=== PATIENT | female | born 1985 | race Caucasian/White ===

== ENCOUNTER 2018-11-04 20:57 | Emergency (ER) | payer BC ==
[2018-11-04 21:20] VITALS: BP 107/66
--- NOTE | 2018-11-04 21:46 | EDM.PDOC ---
ED HPI GENERAL MEDICAL PROBLEM - General Chief Complaint: Lower Extremity Injury/Pain Stated Complaint: RT ANKLE INJURY Time Seen by Provider: 11/04/18 21:40 Source of Information: Reports: Patient History Limitations: Reports: No Limitations - History of Present Illness INITIAL COMMENTS - FREE TEXT/NARRATIVE: This 33 yo female patient reports to the ED with right lateral ankle pain. The patient reports she was playing softball when she stepped in a hole as she was going into [facility] [place]. The patient reports a previous right ankle injury with a krysten and pins in the distal tibia. Onset: Today Duration: Minutes:, Constant Location: Reports: Lower Extremity, Right Quality: Reports: Ache Severity: Moderate Improves with: Reports: None Worsens with: Reports: None Context: Reports: Other Associated Symptoms: Reports: No Other Symptoms Right Foot Pain Score (Numeric/FACES): 5 - Related Data Allergies Allergy/AdvReac Type Severity Reaction Status Date / Time No Known Allergies Allergy Verified 11/04/18 21:26 Home Meds: Home Meds . [No Known Home Meds] 11/04/18 [History] Past Medical History - Past Health History Medical/Surgical History: Denies Medical/Surgical History Social & Family History - Tobacco Use Smoking Status *Q: Current Every Day Smoker Years of Tobacco use: 5 Packs/Tins Daily: 1 - Caffeine Use Caffeine Use: Reports: Soda - Recreational Drug Use Recreational Drug Use: No Review of Systems - Review of Systems Review Of Systems: ROS reveals no pertinent complaints other than HPI. ED EXAM, GENERAL - Physical Exam Exam: See Below Exam Limited By: No Limitations General Appearance: Alert, WD/WN, Mild Distress Eye Exam: Bilateral Eye: EOMI, Normal Inspection, PERRL Ears: Normal External Exam, Normal Canal, Hearing Grossly Normal, Normal TMs Nose: Normal Inspection, Normal Mucosa, No Blood Throat/Mouth: Normal Inspection, Normal Lips, Normal Teeth, Normal Gums, Normal Oropharynx, Normal Voice, No Airway Compromise Head: Atraumatic, Normocephalic Neck: Normal Inspection, Supple, Non-Tender, Full Range of Motion Respiratory/Chest: No Respiratory Distress, Lungs Clear, Normal Breath Sounds, No Accessory Muscle Use, Chest Non-Tender Cardiovascular: Normal Peripheral Pulses, Regular Rate, Rhythm, No Edema, No Gallop, No JVD, No Murmur, No Rub GI/Abdominal: Normal Bowel Sounds, Soft, Non-Tender, No Organomegaly, No Distention, No Abnormal Bruit, No Mass (Female) Exam: Deferred Rectal (Female) Exam: Deferred Back Exam: Normal Inspection, Full Range of Motion, NT Extremities: Leg Pain (right lateral ankle) Neurological: Alert, Oriented, CN II-XII Intact, Normal Cognition, Normal Gait, Normal Reflexes, No Motor/Sensory Deficits Psychiatric: Normal Affect, Normal Mood Skin Exam: Warm, Dry, Intact, Normal Color, No Rash Lymphatic: No Adenopathy Course - Vital Signs Last Recorded V/S: Last Vital Signs Temp 36.3 C 11/04/18 21:10 Pulse 103 H 11/04/18 21:10 Resp 19 11/04/18 21:10 BP 107/66 11/04/18 21:10 Pulse Ox 99 11/04/18 21:10 - Orders/Labs/Meds Orders: Active Orders 24 hr Category Date Time Status Ankle Min 3V Rt [CR] Urgent Exams 11/04/18 21:08 Ordered Departure - Departure Time of Disposition: 21:57 Disposition: Home, Self-Care 01 Condition: Fair Clinical Impression: Right ankle strain Qualifiers: Encounter type: initial encounter Qualified Code(s): S96.911A - Strain of unspecified muscle and tendon at ankle and foot level, right foot, initial encounter - Discharge Information *PRESCRIPTION DRUG MONITORING PROGRAM REVIEWED*: Not Applicable *COPY OF PRESCRIPTION DRUG MONITORING REPORT IN PATIENT EVAN: Not Applicable Instructions: Ankle Sprain, [id number] Forms: ED Department Discharge Care Plan Goals: The patient was advised of the examination and x-ray results during the visit. The patient was placed in an air splint while in the ED. The patient was encouraged to rest, ice and elevate the ankle over the next 48 hours. If the patient has any additional symptoms or concerns, the patient should either return to the emergency department or visit her primary care facility. - My Orders Last 24 Hours: My Active Orders 11/04/18 21:08 Ankle Min 3V Rt [CR] Urgent - Assessment/Plan Last 24 Hours: My Active Orders 11/04/18 21:08 Ankle Min 3V Rt [CR] Urgent
== END 2018-11-04 22:04 | disposition home or self-care (01) ==
LOC: DL.ED 20:57
DX: S96.911A Strain of unspecified muscle and tendon at ankle and foot level, right foot, initial encounter (principal); F17.210 Nicotine dependence, cigarettes, uncomplicated; W22.8XXA Striking against or struck by other objects, initial encounter; Y93.64 Activity, baseball
CPT/HCPCS: 73610-RT; 99283-25

== ENCOUNTER 2019-04-26 11:08 | Emergency (ER) | payer BC ==
[2019-04-26 11:18] VITALS: BP 118/78; PULSE 90
--- NOTE | 2019-04-26 11:36 | EDM.PDOC ---
Scribed by Carmen Del Rio 04/26/19 1133 for Jacob Chadwick PA ED HPI GENERAL MEDICAL PROBLEM - General Chief Complaint: Eye Problems Stated Complaint: EYE PROBLEMS Time Seen by Provider: 04/26/19 11:25 Source of Information: Reports: Patient, RN, RN Notes Reviewed History Limitations: Reports: No Limitations - History of Present Illness INITIAL COMMENTS - FREE TEXT/NARRATIVE: Patient is a 33-year-old female who presents to ER with left eye pain and drainage that started yesterday. She woke up this morning with redness, drainage and itching. Onset Date: 04/25/19 Duration: Constant Location: Reports: Other (left eye) Quality: Reports: Ache Severity: Mild Improves with: Reports: None Worsens with: Reports: None Associated Symptoms: Reports: No Other Symptoms - Related Data Allergies Allergy/AdvReac Type Severity Reaction Status Date / Time No Known Allergies Allergy Verified 04/26/19 11:15 Home Meds: Home Meds . [No Known Home Meds] 11/04/18 [History] Past Medical History - Past Health History Medical/Surgical History: Denies Medical/Surgical History HEENT History: Reports: Impaired Vision Cardiovascular History: Reports: None Respiratory History: Reports: None Gastrointestinal History: Reports: None YARDAGE ESTIMATOR History: Reports: None Musculoskeletal History: Reports: Other (See Below) Other Musculoskeletal History: fracture to R)wrist, L)arm, R) tib and fib Neurological History: Reports: Other (See Below) Other Neuro History: brain abscess Psychiatric History: Reports: None Endocrine/Metabolic History: Reports: None Hematologic History: Reports: None Immunologic History: Reports: None Oncologic (Cancer) History: Reports: None Dermatologic History: Reports: None - Infectious Disease History Infectious Disease History: Reports: None - Past Surgical History Head Surgeries/Procedures: Reports: None Female Surgical History: Reports: Hysterectomy Social & Family History - Family History Family Medical History: Noncontributory - Tobacco Use Smoking Status *Q: Current Every Day Smoker Years of Tobacco use: 16 Packs/Tins Daily: 0.5 - Caffeine Use Caffeine Use: Reports: Energy Drinks - Recreational Drug Use Recreational Drug Use: No ED ROS GENERAL - Review of Systems Review Of Systems: Comprehensive ROS is negative, except as noted in HPI. ED EXAM GENERAL W FULL EYE - Physical Exam Exam: See Below Exam Limited By: No Limitations General Appearance: Alert, WD/WN, No Apparent Distress Eye Exam: Bilateral Eye: Other (left eye redness, drainage and erythema.) Ears: Normal External Exam, Normal Canal, Hearing Grossly Normal, Normal TMs Nose: Normal Inspection, Normal Mucosa, No Blood Throat/Mouth: Normal Inspection, Normal Lips, Normal Teeth, Normal Gums, Normal Oropharynx, Normal Voice, No Airway Compromise Head: Atraumatic, Normocephalic Neck: Normal Inspection, Supple, Non-Tender, Full Range of Motion Respiratory/Chest: No Respiratory Distress, Lungs Clear, Normal Breath Sounds, No Accessory Muscle Use, Chest Non-Tender Cardiovascular: Normal Peripheral Pulses, Regular Rate, Rhythm, No Edema, No Gallop, No JVD, No Murmur, No Rub GI/Abdominal: Normal Bowel Sounds, Soft, Non-Tender, No Organomegaly, No Distention, No Abnormal Bruit, No Mass (Female) Exam: Deferred Back Exam: Normal Inspection, Full Range of Motion, NT Extremities: Normal Inspection, Normal Range of Motion, Non-Tender, Normal Capillary Refill, No Pedal Edema Neurological: Alert, Oriented, CN II-XII Intact, Normal Cognition, Normal Gait, Normal Reflexes, No Motor/Sensory Deficits Psychiatric: Normal Affect, Normal Mood Skin Exam: Warm, Dry, Intact, Normal Color, No Rash Lymphatic: No Adenopathy Course - Vital Signs Last Recorded V/S: Last Vital Signs Temp 36.4 C 04/26/19 11:16 Pulse 90 04/26/19 11:16 Resp 16 04/26/19 11:16 BP 118/78 04/26/19 11:16 Pulse Ox 100 04/26/19 11:16 Departure - Departure Time of Disposition: 11:31 Disposition: Home, Self-Care 01 Condition: Fair Clinical Impression: Conjunctivitis Qualifiers: Conjunctivitis type: acute Acute conjunctivitis type: bacterial Laterality: left Qualified Code(s): H10.32 - Unspecified acute conjunctivitis, left eye - Discharge Information *PRESCRIPTION DRUG MONITORING PROGRAM REVIEWED*: Not Applicable *COPY OF PRESCRIPTION DRUG MONITORING REPORT IN PATIENT EVAN: Not Applicable Instructions: Bacterial Conjunctivitis Forms: ED Department Discharge Care Plan Goals: The patient was advised of the examination results during the visit. The patient was discharged with a script for Polytrim to place 1 drop into the affected eye 4 times per day for 10 days. If the patient has any additional symptoms or further concerns, the patient should follow-up with her primary care facility or return to the emergency department. Sepsis Event Note - Evaluation Sepsis Screening Result: No Definite Risk - Focused Exam Vital Signs: Vital Signs Temp Pulse Resp BP Pulse Ox 04/26/19 11:16 36.4 C 90 16 118/78 100 Date Exam was Performed: 04/26/19 Time Exam was Performed: 11:35 I have read and agree with the documentation that has been completed regarding this visit. By signing this record, I attest that the documentation was completed in my physical presence and is an accurate record of the encounter.
== END 2019-04-26 11:40 | disposition home or self-care (01) ==
LOC: DL.ED 11:08
DX: H10.32 Unspecified acute conjunctivitis, left eye (principal); F17.210 Nicotine dependence, cigarettes, uncomplicated
CPT/HCPCS: 99283

== ENCOUNTER 2022-11-17 12:42 | Emergency (ER) | payer BC, MEDICAID ==
[2022-11-17 13:22] VITALS: PULSE 82
[2022-11-17 13:29] VITALS: BP 117/81
== END 2022-11-17 13:59 | disposition left against medical advice (07) ==
LOC: DL.ED 12:42
DX: Z53.21 Procedure and treatment not carried out due to patient leaving prior to being seen by health care provider (principal)

== ENCOUNTER 2022-12-25 09:01 | Emergency (ER) | payer MEDICAID ==
[2022-12-25] MEDS ORDERED: Sodium Chloride 0.9% 10 ML Syringe FLUSH PRN (09:11)
[2022-12-25 09:27] LABS: BASOPHILS PERCENT AUTO 0.4 % (0.0-1.0); EOSINOPHILS PERCENT AUTO 2.6 % (1.0-3.0); HEMATOCRIT 41.9 % (37.0-47.0); HEMOGLOBIN 13.8 g/dL (12.0-16.0); MEAN CORPUSCULAR HEMOGLOBIN 31.5 pg (27.0-34.0); MEAN CORPUSCULAR HGB CONC 32.9 g/dL (33.0-35.0); MEAN CORPUSCULAR VOLUME 95.7 fL (80-100); MONOCYTES PERCENT AUTO 7.5 % (2-8); NEUTROPHILS PERCENT AUTO 77.5 % (42.2-75.2); PLATELET COUNT,PLT 188 10^3/uL (150-450); RED BLOOD CELL COUNT 4.38 10^6/uL (4.2-5.4); WHITE BLOOD CELL COUNT,WBC 7.7 10^3/uL (5.0-10.0)
[2022-12-25 09:31] VITALS: BP 124/70; PULSE 77
[2022-12-25 09:46] LABS: A/G RATIO 1.2; ALBUMIN 3.7 g/dL (3.4-5.0); ANION GAP 10.6 mEq/L (7-13); BILIRUBIN TOTAL 0.4 mg/dL (0.2-1.0); BUN/CREATININE RATIO 10.2 (No establ ref range); CALCIUM 8.6 mg/dL (8.5-10.1); CREATININE 0.88 mg/dL (0.55-1.02); EST CRCL DRUG DOSING (CG) 92.36 mL/min; POTASSIUM,K 4.6 mmol/L (3.5-5.1); PROTEIN TOTAL,TP 6.9 g/dL (6.4-8.2)
== END 2022-12-25 10:59 | disposition home or self-care (01) ==
LOC: DL.ED 09:01
DX: J01.00 Acute maxillary sinusitis, unspecified (principal); J02.9 Acute pharyngitis, unspecified; R42 Dizziness and giddiness; F17.210 Nicotine dependence, cigarettes, uncomplicated; Z20.822 Contact with and (suspected) exposure to COVID-19
CPT/HCPCS: 36415; 80053; 85025; 87081; 87430; 87804; 99283; J3490; U0002

== ENCOUNTER 2023-03-26 19:21 | Emergency (ER) | payer MEDICAID ==
[2023-03-26] MEDS ORDERED: Ketorolac 30 MG/ML SDV IM ONE (21:57)
[2023-03-26] MEDS ORDERED: Penicillin G Benzathine/Procaine 600-600 1.2 Millunits/2 ML Syringe IM ONE (21:57)
[2023-03-26 22:02] VITALS: BP 139/72; PULSE 82
[2023-03-26 22:02] LABS: CORONAVIRUS COVID-19 NAA NEGATIVE (NEGATIVE); INFLUENZA A NAA NEGATIVE (NEGATIVE); INFLUENZA B NAA NEGATIVE (NEGATIVE); RESPIRATORY SYNCYTIAL VIR NAA NEGATIVE (NEGATIVE)
== END 2023-03-26 22:23 | disposition home or self-care (01) ==
LOC: DL.ED 19:21
DX: J02.0 Streptococcal pharyngitis (principal)
CPT/HCPCS: 0241U; 87430; 96372; 99283; J0558; J1885